=== PATIENT | female | born 1990 | race Caucasian/White ===

== ENCOUNTER → 2019-05-02 13:39 | Outpatient (CLI) | payer OTHER, SELFPAY ==
--- NOTE | 2019-05-02 13:46 | XR_ITS ---
PROCEDURE: XR ANKLE WT BEARING LT MIN 3V CLINICAL INDICATION: LT FOOT/ANKLE INJURY , PAIN Left foot and ankle pain with bruising COMPARISON: XR FOOT WT BEARING LT 3V from 05/02/2019 FINDINGS: Mild soft tissue swelling at the lateral malleolar region. No acute fracture or dislocation. Mild pes planus. IMPRESSION: No acute fracture Mild pes planus Dictated by: Justin Crowley MD 05/02/2019 14:19 Electronically signed by Justin Crowley MD in [place] 05/02/2019 14:19
== END ==
PROVIDERS: Visit Provider Podiatrist
DX: M79.672 Pain in left foot (principal); M25.572 Pain in left ankle and joints of left foot
CPT/HCPCS: 73610; 73630

== ENCOUNTER → 2019-05-23 08:43 | Outpatient (CLI) | payer OTHER, SELFPAY ==
--- NOTE | 2019-05-23 08:47 | MR_ITS ---
PROCEDURE: MR ANKLE LT WO/W CON CLINICAL INDICATION: ankle pain, peroneal tendon pathology Persistent lateral ankle pain and posterior heel pain, peroneal tendinitis, ruptured syndesmosis, ATFL CFL and Peroni ule tendon evaluation, worsening pain bruising and swelling, sprain of anterior talofibular ligament, high ankle sprain COMPARISON: XR ANKLE WT BEARING LT MIN 3V from 05/02/2019 TECHNIQUE: Routine multiplanar multi echo sequences are performed without gadolinium enhancement. FINDINGS: There is increased T2 signal involving the neck of the talus medially and medial aspect of the body of the talus. There is also some focal increased T2 signal involving the posterior aspect of the talus. The there is increased T2 signal involving the medial aspect of the anterior tibial fibular ligament and may be due to sprain or partial tear. The posterior tibiofibular ligament appears intact. There is mild thickening of the ATFL with slight increase in T2 signal consistent with sprain versus partial tear. There is also mild thickening of the PT FL suggesting sprain or partial tear with slight increased T2 signal. The calcaneal fibular ligament is not adequately demonstrated which could be related to the imaging orientation or tear. On axial image number 14 series 3 there is a small focal area of increased signal within the lateral aspect of the peroneal longus tendon. This is of questionable clinical significance. A partial tear is not excluded. A complete tear of the peroneal tendons is not felt to be present. The posterior tibialis, flexor hallucis longus, flexor digitorum longus, and extensor tendons have an unremarkable appearance. Small amount fluid is present along both the anterior and posterior aspect of the tibiotalar joint. There is a small area of increased bone marrow signal intensity within the lateral malleolus anteriorly consistent with an area of bone bruise. The Achilles tendon has an unremarkable appearance. There is sparsely of the deltoid ligament fibers with some increased T2 signal which may be seen with sprain or partial tear. IMPRESSION: Increased T2 signal of the talus and lateral malleolar region as described above consistent with bone bruise. Sprain versus partial tear of the anterior tibiofibular ligament, anterior talofibular ligament, and posterior talofibular ligament Sprain versus partial tear of the deltoid ligament. Small focal area of increased T2 signal of the peroneal longus tendon which may be due to partial intrasubstance tear Dictated by: Justin Crowley MD 05/26/2019 08:42 Electronically signed by Justin Crowley MD in [place] 05/26/2019 08:42
== END ==
PROVIDERS: PCP Family Medicine; Visit Provider Podiatrist
DX: M76.72 Peroneal tendinitis, left leg (principal); S93.432A Sprain of tibiofibular ligament of left ankle, initial encounter; S93.492A Sprain of other ligament of left ankle, initial encounter; S99.912A Unspecified injury of left ankle, initial encounter
CPT/HCPCS: 73723; A9576